=== PATIENT | male | born 1970 | race Caucasian/White ===

== ENCOUNTER → 2024-01-22 06:26 | Outpatient (REF) | payer BC, SELFPAY ==
[2024-01-22 07:22] LABS: % Basophils 0.9 % (0-2); % Eosinophils 3.1 % (0-6); % Immature Granulocytes 0.4 % (0-0.5); % Lymphocytes 29.1 % (20.5-51.1); % Monocytes 8.6 % (1.7-9.3); % Neutrophils 57.9 % (42.2-75.2); Absolute Basophils 0.1 10^3/uL (0-0.2); Absolute Eosinophils 0.2 10^3/uL (0-0.7); Absolute Monocytes 0.6 10^3/uL (0.1-0.6); Hematocrit 42.1 % (39.0-52.0); Hemoglobin 14.5 g/dL (13.0-18.0); Mean Corp Hgb Conc. 34.4 g/dL (33.0-37.0); Mean Corpuscular Hgb 30.3 pg (27.0-31.0); Mean Corpuscular Volume 87.9 fL (80.0-94.0); Mean Platelet Volume 10.7 fL (7.4-10.4); Nucleated Red Blood Cells % 0 % (-); Platelet Count 236 10^3/uL (130-400); Red Blood Cell Count 4.79 10^6/uL (4.70-6.10); Red Cell Dist. Width 12.3 % (11.5-14.5); White Blood Cell Count 6.9 10^3/uL (4.8-10.8)
[2024-01-22 07:49] LABS: ALT (SGPT) 142 U/L (0-50); AST (SGOT) 163 U/L (17-59); Albumin 4.3 g/dl (3.5-5.0); Alkaline Phosphatase 67 U/L (38-126); Blood Urea Nitrogen 19 mg/dl (9-20); Calcium 9.5 mg/dl (8.4-10.2); Carbon Dioxide 27 mmol/L (22-30); Chloride 103 mmol/L (98-107); Glucose 101 mg/dl (70-99); HDL Cholesterol 47 mg/dl; LDL Cholesterol, Calculated 160 mg/dl; Potassium 4.6 mmol/L (3.5-5.1); Sodium 140 mmol/L (135-145); Total Bilirubin 0.6 mg/dl (0.2-1.3); Total Cholesterol 241 mg/dl (50-199); Total Protein 7.3 g/dl (6.3-8.2); Triglyceride 173 mg/dl (10-149); Very Low Density Lipoprotein 34 mg/dl (0-30); eGFR > 60.00
[2024-01-22 08:12] LABS: PSA, Total - Screen 0.82 ng/ml (0.0-4.0)
== END ==
LOC: REG 06:26
PROVIDERS: ATTENDING PHYSICIAN Nurse Practitioner Family
DX: Z00.00 Encounter for general adult medical examination without abnormal findings (principal); Z12.5 Encounter for screening for malignant neoplasm of prostate
CPT/HCPCS: 36415; 80053; 80061; 84443; 85025; G0103

== ENCOUNTER → 2024-02-20 16:00 | Outpatient (REF) | payer BC, SELFPAY ==
[2024-02-20 17:58] LABS: ALT (SGPT) 98 U/L (0-50); AST (SGOT) 96 U/L (17-59); Albumin 4.5 g/dl (3.5-5.0); Alkaline Phosphatase 77 U/L (38-126); Direct Bilirubin 0.4 mg/dl (0.0-0.4); Total Bilirubin 0.7 mg/dl (0.2-1.3); Total Protein 7.2 g/dl (6.3-8.2)
== END ==
LOC: REG 16:00
PROVIDERS: ATTENDING PHYSICIAN Nurse Practitioner Family
DX: R74.8 Abnormal levels of other serum enzymes (principal)
CPT/HCPCS: 36415; 80076

== ENCOUNTER → 2024-05-14 10:20 | Outpatient (REF) | payer BC, SELFPAY | LOC: RAD 10:20 | PROVIDERS: ATTENDING PHYSICIAN Nurse Practitioner Family | DX: M54.42 Lumbago with sciatica, left side (principal) | CPT/HCPCS: 72110 ==

== ENCOUNTER → 2025-02-22 11:13 | Outpatient (REF) | payer BC, SELFPAY ==
[2025-02-22 12:03] LABS: Hematocrit 45.6 % (39.0-52.0); Hemoglobin 15.7 g/dL (13.0-18.0); Mean Corp Hgb Conc. 34.4 g/dL (33.0-37.0); Mean Corpuscular Volume 89.2 fL (80.0-94.0); Nucleated Red Blood Cells % 0 % (-); Platelet Count 229 10^3/uL (130-400); Red Cell Dist. Width 12.0 % (11.5-14.5)
[2025-02-22 12:51] LABS: ALT (SGPT) 75 U/L (0-50); AST (SGOT) 78 U/L (17-59); Albumin 4.7 g/dl (3.5-5.0); Alkaline Phosphatase 77 U/L (38-126); Blood Urea Nitrogen 11 mg/dl (9-20); Calcium 9.6 mg/dl (8.4-10.2); Carbon Dioxide 24 mmol/L (22-30); Chloride 104 mmol/L (98-107); Glucose 84 mg/dl (70-99); HDL Cholesterol 56 mg/dl; LDL Cholesterol, Calculated 171 mg/dl; Potassium 4.2 mmol/L (3.5-5.1); Sodium 137 mmol/L (135-145); Total Protein 7.7 g/dl (6.3-8.2); Very Low Density Lipoprotein 32 mg/dl (0-30); eGFR > 60.00
[2025-02-22 13:01] LABS: PSA, Total - Screen 1.76 ng/ml (0.0-4.0)
== END ==
LOC: REG 11:13
PROVIDERS: ATTENDING PHYSICIAN Nurse Practitioner Family
DX: Z00.00 Encounter for general adult medical examination without abnormal findings (principal)
CPT/HCPCS: 36415; 80053; 80061; 84443; 85025; G0103